=== PATIENT | female | born 1985 | race Caucasian/White ===

== ENCOUNTER 2016-09-10 10:23 | Inpatient (IN) | payer OTHER ==
--- NOTE | 2016-09-10 11:16 | OBHP ---
Datetime: 09/10/2016 11:09 IP Adm Impression: Term, intrauterine ; Ruptured Membranes IP Admit Plan: Admit to unit Admit Comment, IP Provider: chief complaint-leaking of fluid HPI 31 y/o at 37 wga with c/o leaking of fluid since7.30 am.States that she ahd mild spotting as well.Started feeling some pain also.Denies nausea, vomiting, headache, chest pain, shortness of b reath, numbness or tingling in hands and feet course uncomplicated PMH denies PSH denies OBGYN HX Social hx denies tobacco,alcohol or illicit drug use Exam see exam section A/P 31 y/o at 37wga with PROM. -Admit -see orders discussed with dr tony Fenton Type - PN: Adequate Extremities - PN: Normal Abdomen - PN: Normal Back - PN: Normal Lungs - PN: Normal Heart - PN: Normal Neurologic - PN: Normal General - PN: Normal Weight - Estimated: 3200 Presentation-Admit: Vertex Amniotic Fluid Color, Provider: Clear Membranes, Provider: Ruptured Contraction Comments Provider: irregular Gestation - Est Wks by US: 37.0 Pool Provider: Positive Nitrazine Provider: Positive Ferning Provider: Positive IP Hx Assessment: The History has been Reviewed and is Current EGA AdmitDate IP: 37.0 Vital Signs Provider: Reviewed IP Chief Complaint: Uterine contractions; Suspected ruptured membranes FHR Category Provider Fetus A: Category I Dilatation, Provider: 2-3 Effacement, Provider: 70 Station, Provider: -2 Genitourinary Exam: Normal DTRs - PN: Normal
--- NOTE | 2016-09-10 11:20 | OBADHP ---
Datetime: 09/10/2016 11:09 Admit Comment, IP Provider: chief complaint-leaking of fluid HPI 31 y/o at 37 wga with c/o leaking of fluid since7.30 am.States that she ahd mild spotting as well.Started feeling some pain also.Denies nausea, vomiting, headache, chest pain, shortness of b reath, numbness or tingling in hands and feet course uncomplicated PMH denies PSH denies OBGYN HX Social hx denies tobacco,alcohol or illicit drug use Exam see exam section A/P 31 y/o at 37wga with PROM. -Admit -pitocin cont satish and efm pain management anticipate Pelvic Type - PN: Adequate Extremities - PN: Normal Abdomen - PN: Normal Back - PN: Normal Lungs - PN: Normal Heart - PN: Normal Neurologic - PN: Normal General - PN: Normal Weight - Estimated: 3200 Presentation-Admit: Vertex Amniotic Fluid Color, Provider: Clear Membranes, Provider: Ruptured Contraction Comments Provider: irregular Comments, ACOG Physical Exam: gravid,non tender ext no edema,no calf ten sse +pooling,+nitrazine Gestation - Est Wks by US: 37.0 Pool Provider: Positive Nitrazine Provider: Positive Ferning Provider: Positive IP Hx Assessment: The History has been Reviewed and is Current Vital Signs Provider: Reviewed IP Chief Complaint: Uterine contractions; Suspected ruptured membranes FHR Category Provider Fetus A: Category I Dilatation, Provider: 2-3 Effacement, Provider: 70 Station, Provider: -2 Genitourinary Exam: Normal DTRs - PN: Normal EGA AdmitDate IP: 37.0 IP Adm Impression: Term, intrauterine ; Ruptured Membranes IP Admit Plan: Admit to unit
[2016-09-10] MEDS ORDERED: Oxytocin 30 UNIT 30 UNITS/500 ML BAG IV ONE (12:02)
[2016-09-10 12:38] LABS: RBC URINE 361 /hpf (0-3); URINE BILIRUBIN NEGATIVE (NEGATIVE); URINE BLOOD 3+ (NEGATIVE); URINE COLOR Yellow (YELLOW); URINE GLUCOSE (UA) NORMAL (Normal); URINE KETONE NEGATIVE (NEGATIVE); URINE LEUKOCYTE ESTERASE NEG Leu/uL (Negative); URINE PROTEIN NEGATIVE (NEGATIVE); URINE UROBILINOGEN NORMAL mg/dL (0.2-1.0); WBC URINE 1 /hpf (0-5)
[2016-09-10] MEDS ORDERED: Bupivacaine 0.125%/FentaNYL 200 ML EPI ONE (13:51)
[2016-09-10 14:56] LABS: HEMATOCRIT 39.5 % (34.0-47.0); MEAN CORPUSCULAR HEMOGLOBIN 26.5 pg (27.0-31.0); WHITE BLOOD COUNT 11.2 K/uL (4.8-10.8)
[2016-09-10 14:57] LABS: BASO % 0.2 % (0.0-2.0); EOS % 0.4 % (0.0-4.0); LYMPH # 1.9 K/uL (1.0-4.3); LYMPH % 17.3 % (20.0-40.0); MEAN CORPUSCULAR HGB CONC 31.7 g/dL (33.0-37.0); MEAN PLATELET VOLUME 9.3 fL (7.2-11.7); MONO % 6.2 % (0.0-10.0); RED CELL DISTRIBUTION WIDTH 15.1 % (11.5-14.5)
[2016-09-10 14:58] LABS: MEAN CELL VOLUME 83.6 fL (81.0-99.0); MONO # 0.7 K/uL (0.0-0.8)
[2016-09-10 15:08] LABS: CHLORIDE 103 mmol/L (98-107)
[2016-09-10 15:09] LABS: POTASSIUM 4.1 mmol/L (3.6-5.2); SODIUM 135 mmol/L (132-148)
[2016-09-10 15:11] LABS: GFR AFRICAN-AMERICAN > 60
[2016-09-10 15:12] LABS: BLOOD UREA NITROGEN 11 mg/dL (7-17); CALCIUM 9.5 mg/dl (8.6-10.4); CARBON DIOXIDE 20 mmol/L (22-30); GLUCOSE,RANDOM 82 mg/dL (65-105)
[2016-09-10] MEDS ORDERED: Oxytocin 20 units in LR 2,000 ML IV ONE (15:47)
[2016-09-10] MEDS ORDERED: Sodium Citrate/Citric Acid 15 ml Sol ONE (15:48)
[2016-09-10] MEDS ORDERED: cefOXitin IV 2 gm in Dextrose 2 GM/50 ML BAG IVPB ONE (15:48)
[2016-09-10 16:39] VITALS: BMI 35.4
[2016-09-10] MEDS ORDERED: DiphenhydrAMINE 50 mg/ml Inj IVP PRN (16:41)
[2016-09-10] MEDS ORDERED: HYDROmorphone 0.5 mg/0.5 ml ISec IVP PRN (16:41)
[2016-09-10] MEDS ORDERED: Dexamethasone 4 mg/1 ml IVP PRN (16:41)
[2016-09-10] MEDS ORDERED: Lactated Ringer's 1,000 ML IV SCH (16:45)
--- NOTE | 2016-09-10 16:53 | OBPN ---
Datetime: 09/10/2016 16:50 IP Progress Impression: Non-reassuring heart rate IP Informed Consent Obtain: Section Delivery; Risks, Benefits and Alternatives Discussed IP Procedures: Sterile Vag Exam FHR - Baseline A Provider: 130 IP Progress Note Comment: pt was examined at bed side fhr 130 mod mercy with ctg tracing with rec decleration. ve 380/-2, unchanged with blood clots. primary c/s was called with ctg11 tracing r/o placental abruption r/a/b disc pt und agrees oraware anthesia aware FHR Category Provider Fetus A: Category II NICHD Variability Prov Fetus A: Moderate 6-25bpm NICHD Decel Fetus A IP Provider: Late Datetime: 09/10/2016 11:09 Pool Provider: Positive Nitrazine Provider: Positive Ferning Provider: Positive Membranes, Provider: Ruptured Amniotic Fluid Color, Provider: Clear Contraction Comments Provider: irregular Gestation - Est Wks by US: 37.0 Weight - Estimated: 3200 Presentation-Admit: Vertex Vital Signs Provider: Reviewed Dilatation, Provider: 2-3 Effacement, Provider: 70 Station, Provider: -2
--- NOTE | 2016-09-10 16:55 | OBDS ---
MATERNAL INFORMATION Delivery Anesthesia: Epidural Provider Comments: baby chiquita in dop position. placente 50 abrpution. cord arrounfd neeck x 2 no com cyttec 1000 mcg LABOR SUMMARY EDC: 10/01/2016 00:00 LABOR INFORMATION Group B Beta Strep: Negative STAGES OF LABOR Stage 3 hrs: 0 Stage 3 min: 1 BABY A INFORMATION Infant Delivery Date/Time: 09/10/2016 16:20 Method of Delivery: Born in Route : No : N/A Forceps: N/A Vacuum Extraction: N/A Shoulder Dystocia : No SHOULDER DYSTOCIA BABY A Infant Delivery Date/Time: 09/10/2016 16:20 PRESENTATION/POSITION BABY A Presentation: Cephalic Cephalic Presentation: Vertex Vertex Position: Left Occipital Posterior Breech Presentation: N/A PLACENTA INFORMATION BABY A Placenta Delivery Time : 09/10/2016 16:21 Placenta Method of Delivery: Manual Removal Placenta Status: Delivered SCORES BABY A Heart Rate 1 min: >100 bpm Resp Effort 1 min: Good Cry Reflex Irritability 1 min: Cough or Sneeze or Pulls Away Muscle Tone 1 min: Active Motion Color 1 min: Body [place], Extremities Blue SCORE 1 MIN: 9 Heart Rate 5 min: >100 bpm Resp Effort 5 min: Good Cry Reflex Irritability 5 min: Cough or Sneeze or Pulls Away Muscle Tone 5 min: Active Motion Color 5 min: Body [place], Extremities Blue SCORE 5 MIN: 9 INFORMATION BABY A Gestational Age at Delivery: 37.0 Gestational Status: Term Infant Outcome : Liveborn Infant Condition : Stable Infant Sex: Male IDENTIFICATION/MEDS BABY A ID Band Number: [id number] ID Band Location: Left Leg; Left Arm Sensor Applied: Yes Sensor Number: [id number] Vitamin K Given : Aquamephyton 1 mg IM Erythromycin Given: Given Left Eye Only WEIGHT/LENGTH BABY A Birthweight (gms): 2640 Weight (lb): 5 Weight (oz): 13 Length Inches: 18.25 Infant Length cms: 46.4 CORD INFORMATION BABY A No. Cord Vessels: 3 Nuchal Cord : Around Neck x2, Loose Cord Blood Taken: Yes Infant Suction: Mouth; Nose ASSESSMENT BABY A Complications: None Physical Findings at Delivery: Within Normal Limits Respirations: Appears Normal Chip Unloader/ALS Called : Yes Infant Care By: dr morales Transferred To: Nursery
[2016-09-10] MEDS ORDERED: Lidocaine 2% MPF (5 ml) Inj ONE (17:39)
[2016-09-10] MEDS: Simethicone 80 mg Chewtab PO SCH (22:59)
[2016-09-11 08:07] LABS: HEMATOCRIT 34.1 % (34.0-47.0); MEAN CELL VOLUME 84.1 fL (81.0-99.0); MEAN CORPUSCULAR HEMOGLOBIN 26.8 pg (27.0-31.0); MEAN CORPUSCULAR HGB CONC 31.9 g/dL (33.0-37.0); MEAN PLATELET VOLUME 9.2 fL (7.2-11.7); RED CELL DISTRIBUTION WIDTH 15.2 % (11.5-14.5); WHITE BLOOD COUNT 13.5 K/uL (4.8-10.8)
--- NOTE | 2016-09-11 08:52 | CP.PCM.PN ---
Subjective - Date & Time of Evaluation Date of Evaluation: 09/11/16 Time of Evaluation: 08:42 - Subjective Subjective: SHORT ORDER FRY COOK Progress Note Dr. Vasquez Patient seen and examined at the bedside. No acute distress. No acute events overnight. Nursing staff reports no issues. Patient is post- day 1 s/p cesarian section for placental abruption. The patient tolerated the procedure well. The patient's pain is well controlled. The patient is tolerating her liquid diet. Patient denies voiding and BM. The patient denies N/V this morning. Objective - Vital Signs/Intake and Output Vital Signs (last 24 hours): Temp Pulse Resp BP Pulse Ox 98.5 F 90 18 114/77 100 09/11/16 08:00 09/11/16 08:00 09/11/16 08:00 09/11/16 08:00 09/11/16 08:00 - Medications Medications: Current Medications Acetaminophen (Tylenol 650 Mg Supp) 650 mg KS Q4 PRN PRN Reason: Fever >100.4 F Bisacodyl (Dulcolax) 10 mg PO ONCE ONE Stop: 09/11/16 16:55 Docusate Sodium (Colace) 100 mg PO BID TOY Ferrous Sulfate (Feosol) 325 mg PO DAILY TOY Lactated Ringer's (Lactated Ringer's) 1,000 mls @ 120 mls/hr IV .Q8H20M TOY Oxytocin (Pitocin 20 Units In Lr) 1,000 mls @ 125 mls/hr IV .Q8H TOY PRN Reason: Protocol Ibuprofen (Motrin Tab) 600 mg PO Q4 PRN PRN Reason: Pain, Mild (1-3) Ketorolac Tromethamine (Toradol) 30 mg IM Q6 PRN PRN Reason: Pain, severe (8-10) Last Admin: 09/11/16 03:58 Dose: 30 mg Oxycodone/Acetaminophen (Percocet 5/325 Mg Tab) 1 tab PO Q4H PRN PRN Reason: Pain, moderate (4-7) Stop: 09/13/16 16:54 Oxycodone/Acetaminophen (Percocet 5/325 Mg Tab) 2 tab PO Q4H PRN PRN Reason: Pain, severe (8-10) Stop: 09/13/16 16:54 Simethicone (Mylicon Chew Tab) 80 mg PO QID TOY Last Admin: 09/10/16 22:59 Dose: Not Given - Labs Labs: 09/11/16 08:01 09/10/16 12:30 - Constitutional Appears: Well, No Acute Distress - Head Exam Head Exam: ATRAUMATIC, NORMAL INSPECTION, NORMOCEPHALIC - Eye Exam Eye Exam: EOMI, Normal appearance - ENT Exam ENT Exam: Mucous Membranes Moist - Neck Exam Neck Exam: Full ROM, Normal Inspection. absent: Lymphadenopathy - Respiratory Exam Respiratory Exam: Clear to Ausculation Bilateral, NORMAL BREATHING PATTERN. absent: Rales, Rhonchi, Wheezes, Stridor - Cardiovascular Exam Cardiovascular Exam: REGULAR RHYTHM, +S1, +S2. absent: Diastolic murmur, Murmur - GI/Abdominal Exam GI & Abdominal Exam: Soft, Normal Bowel Sounds. absent: Distended, Firm, Guarding, Rigid, Tenderness Additional comments: Dressing C/D/I Minimal tenderness about incision no erythema no exudate no edema - Exam Additional comments: Fundal height at umbilicus - Extremities Exam Extremities Exam: Full ROM, Normal Capillary Refill, Normal Inspection. absent : Joint Swelling, Pedal Edema - Back Exam Back Exam: NORMAL INSPECTION. absent: CVA tenderness (L), CVA tenderness (R) - Neurological Exam Neurological Exam: Alert, Awake, CN II-XII Intact, Oriented x3 - Skin Skin Exam: Dry, Intact, Normal Color, Warm Assessment and Plan (1) Delivered by section Assessment & Plan: Post- day #1 continue routine post-operative and post- care advance diet as tolerated - currently tolerating liquids, advanced to full liquid today Incentive spirometer ordered CBC stable, will trend 1 more day ambulation encouraged pain control: percocet 5/325mg 2tab (8-10), percocet 5/325mg 1 tab (4-7), motrin 800mg (1-3) PRN Pain Continue wound care Case discussed with Dr. Christina Duque PGY1 Status: Acute (2) Placental abruption Status: Resolved
[2016-09-11] MEDS: Simethicone 80 mg Chewtab PO SCH ×4 (09:30→21:21)
[2016-09-11] MEDS: Oxycodone/Acetaminophen 5/325 mg Tab PO PRN ×3 (09:31→21:19)
--- NOTE | 2016-09-11 10:39 | PCM.SURG1 ---
Surgeon's Initial Post Op Note - Surgeon's Notes Surgeon: dr jimenez Engraver Rubber: dr griggs Type of Anesthesia: Moderate Sedation{RN}, Other (epidural) Anesthesia Administered By: dr marquez Pre-Operative Diagnosis: 31yr at 37weeks ctg 111 tracing r/o placenta abruption Operative Findings: see the op report Post-Operative Diagnosis: same with 50 placental abruption Operation Performed: primary section Specimen/Specimens Removed: feyis. cord blood. cord gas. placente Estimated Blood Loss: EBL {In ML}: 900 Blood Products Given: N/A Drains Used: No Drains Post-Op Condition: Good Date of Surgery/Procedure: 09/10/16 Time of Surgery/Procedure: 17:00
--- NOTE | 2016-09-11 11:32 | OP ---
PROCEDURE DATE: 09/11/2016 PREOPERATIVE DIAGNOSIS: A 31-year-old, 1, para 0, at 37 weeks with premature rupture of membranes, category II tracing, rule out placenta _ abruption___. POSTOPERATIVE DIAGNOSES: A 31-year-old, 1, para 0, at 37 weeks with premature rupture of membranes, category II tracing, rule out placenta __ abruption__. SURGEON: Harvinder Vasquez MD GAS OR WATER METER INSTALLER SURGEON: Dr. Chan, who was present throughout the surgery ____ exposure, retraction and pushing at the time of the delivery. ANESTHESIA: Epidural. ANESTHESIOLOGIST: Dr. Kraft. COMPLICATIONS: None. ESTIMATED BLOOD LOSS: 900 mL. ____: Placenta __abruption __ 50%. PROCEDURE: After informed ____ was obtained, the patient was brought to the operating room ____ table where epidural anesthesia was ____ found to be ____, she was prepped and draped in normal sterile fashion. 2 cm above the pubic bone , a skin incision was made with a knife, the subcutaneous with a Bovie. The fascia ____ was excised and extended on ____. The fascia was excised. We went into the abdominal cavity. The rectus muscle was , peritoneum excised. We entered the abdominal cavity. The bladder blade was placed, the bladder flap was created, bladder blade was replaced. Lower uterine segment incision was made with a knife, the subcutaneous with a Bovie. The lower uterine segment incision was made. The baby delivered in ____ direct occiput position. Two cords around the neck which was reduced. Cord gas was taken. Baby was ____ to the awaiting tuber machine operator helper. Placenta delivered manually and sent to pathology. Placenta observed with 50% abruption; was sent to pathology. Uterus exteriorized, cleared of all the clots and debris. Uterine incision was closed using 1-0 Vicryl ____locking fashion, second layer closure with the same stitch. Cul-de-sac was cleared of all debris. Uterus was returned back to abdominal cavity. The incision looked back and it was clear and hemostatic. Gutters were cleared of all the clots and debris. After that, the peritoneum was closed with 2-0 Vicryl in nonlocking fashion. Muscle was closed ____ in nonlocking fashion. Fascia was closed using 1-0 Vicryl nonlocking fashion, subcutaneous with 0 Vicryl ____, and skin was closed with 3- 0 Monocryl. The patient tolerated the procedure well. Laps, sponge and instruments correct x 2. Harvinder Vasquez MD cc: [id number] TT: 09/11/2016 11:29:22 tien CHILD
[2016-09-11] MEDS ORDERED: Bisacodyl 5mg EC Tab PO ONE (16:54)
[2016-09-12] MEDS: Oxycodone/Acetaminophen 5/325 mg Tab PO PRN ×5 (01:27→20:03)
--- NOTE | 2016-09-12 09:05 | OBPPN ---
Datetime: 09/12/2016 09:02 PP Pain Prov: Within normal limits PP Nausea Prov: Denies PP Flatus Prov: Yes PP Abdomen/Uterus Prov: Normal PP Lochia Prov: Normal PP Extremities Prov: Not Done PP C/S Incision Prov: Normal PP Comments Phys Exam Prov: fudus below umblicus ext no edema,no calf ten inciion clean and dry PP Impression Prov: Normal progression PP Plan Prov: Continue present management PP Progress Note Prov: pt was seen at bed side, pain under control, no n/v, tolerating deit, voiding ,min lohia, flatus+ pod#2 s/p c/s encourage ambulation cont pain management cont post op care Vital Signs Provider PP: Reviewed; Within Normal Limits
[2016-09-12] MEDS: Simethicone 80 mg Chewtab PO SCH ×4 (09:08→21:53)
[2016-09-12 16:03] VITALS: RESP 20
[2016-09-13] MEDS: Oxycodone/Acetaminophen 5/325 mg Tab PO PRN ×2 (01:15→05:17)
--- NOTE | 2016-09-13 06:49 | CP.PCM.DIS ---
Provider - Provider Date of Admission: 09/10/16 11:15 Attending physician: Harvinder Vasquez MD Time Spent in preparation of Discharge (in minutes): 20 Diagnosis - Discharge Diagnosis (1) Status post primary low transverse section Status: Acute (2) Non-reassuring cardiotocographic tracing Status: Acute Hospital Course - Lab Results Lab Results: Most Recent Lab Values WBC 13.5 K/uL (4.8-10.8) H 09/11/16 08:01 RBC 4.05 Mil/uL (3.80-5.20) 09/11/16 08:01 Hgb 10.9 g/dL (11.0-16.0) L 09/11/16 08:01 Hct 34.1 % (34.0-47.0) 09/11/16 08:01 MCV 84.1 fL (81.0-99.0) 09/11/16 08:01 MCH 26.8 pg (27.0-31.0) L 09/11/16 08:01 MCHC 31.9 g/dL (33.0-37.0) L 09/11/16 08:01 RDW 15.2 % (11.5-14.5) H 09/11/16 08:01 Plt Count 211 K/uL (130-400) 09/11/16 08:01 MPV 9.2 fL (7.2-11.7) 09/11/16 08:01 Neut % (Auto) 75.9 % (50.0-75.0) H 09/10/16 12:30 Lymph % (Auto) 17.3 % (20.0-40.0) L 09/10/16 12:30 [place]yer % (Auto) 6.2 % (0.0-10.0) 09/10/16 12:30 Eos % (Auto) 0.4 % (0.0-4.0) 09/10/16 12:30 Baso % (Auto) 0.2 % (0.0-2.0) 09/10/16 12:30 Neut # 8.5 K/uL (1.8-7.0) H 09/10/16 12:30 Lymph # 1.9 K/uL (1.0-4.3) 09/10/16 12:30 Sawyer # 0.7 K/uL (0.0-0.8) 09/10/16 12:30 Eos # 0.0 K/uL (0.0-0.7) 09/10/16 12:30 Baso # 0.0 K/uL (0.0-0.2) 09/10/16 12:30 Sodium 135 mmol/L (132-148) 09/10/16 12:30 Potassium 4.1 mmol/L (3.6-5.2) 09/10/16 12:30 Chloride 103 mmol/L (98-107) 09/10/16 12:30 Carbon Dioxide 20 mmol/L (22-30) L 09/10/16 12:30 Anion Gap 16 (10-20) 09/10/16 12:30 BUN 11 mg/dL (7-17) 09/10/16 12:30 Creatinine 0.6 MG/DL (0.7-1.2) L 09/10/16 12:30 Est GFR ( Amer) > 60 09/10/16 12:30 Est GFR (Non-Af Amer) > 60 09/10/16 12:30 Random Glucose 82 mg/dL (65-105) 09/10/16 12:30 Calcium 9.5 mg/dl (8.6-10.4) 09/10/16 12:30 Urine Color Yellow (YELLOW) 09/10/16 12:30 Urine Clarity Clear (Clear) 09/10/16 12:30 Urine pH 6.0 (5.0-8.0) 09/10/16 12:30 Ur Specific [place] 1.008 (1.003-1.030) 09/10/16 12:30 Urine Protein Negative mg/dL (NEGATIVE) 09/10/16 12:30 Urine Glucose (UA) Normal mg/dL (Normal) 09/10/16 12:30 Urine Ketones Negative mg/dL (NEGATIVE) 09/10/16 12:30 Urine Blood 3+ (NEGATIVE) H 09/10/16 12:30 Urine Nitrate Negative (NEGATIVE) 09/10/16 12:30 Urine Bilirubin Negative (NEGATIVE) 09/10/16 12:30 Urine Urobilinogen Normal mg/dL (0.2-1.0) 09/10/16 12:30 Ur Leukocyte Esterase Neg Gabriella/uL (Negative) 09/10/16 12:30 Urine WBC (Auto) 1 /hpf (0-5) 09/10/16 12:30 Urine RBC (Auto) 361 /hpf (0-3) H 09/10/16 12:30 Ur Squamous Epith Cells 1 /hpf (0-5) 09/10/16 12:30 RPR Nonreactive (NONREACTIVE) 09/10/16 12:30 Hepatitis A IgM Ab Negative (NEGATIVE) 09/10/16 12:30 Hep Bs Antigen Negative (NEGATIVE) 09/10/16 12:30 Hep B Core IgM Ab Negative (NEGATIVE) 09/10/16 12:30 Hepatitis C Antibody Negative (NEGATIVE) 09/10/16 12:30 HIV 1&2 Antibody Screen Negative (NEGATIVE) 09/10/16 12:30 Blood Type O NEGATIVE 09/10/16 12:30 Antibody Screen Negative 09/10/16 12:30 Discharge Exam - Head Exam Head Exam: ATRAUMATIC, NORMAL INSPECTION, NORMOCEPHALIC Discharge Plan - Discharge Medications Prescriptions: Ibuprofen [Motrin Tab] 800 mg PO Q8 PRN #30 tab PRN Reason: Pain, Moderate (4-7) oxyCODONE/Acetaminophen [Percocet 5/325 mg Tab] 1 ea PO Q6 #20 tab - Follow Up Plan Condition: GOOD Disposition: HOME/ ROUTINE Instructions: Section (DC), Depression (GEN), Caring for Your Baby (DC), Your Baby (DC), and Nipple Soreness (DC), How to Tell if Your Baby is Getting Enough Breast Milk (DC), Surgical Site Infections (DC), Postoperative Bleeding (GEN), Care For Your Absorbable Stitches (DC)
[2016-09-13 07:51] VITALS: BP 130/85; PULSE 78; TEMP 98.2; O2SAT 98
[2016-09-13] MEDS: Simethicone 80 mg Chewtab PO SCH (10:40)
[2016-09-13] MEDS ORDERED: Measles, Mumps, and Rubella 0.5 ML VIAL SC ONE (11:45)
== END 2016-09-13 13:10 | disposition home or self-care (01) | DRG 765 ==
LOC: C.EROB 10:23 → C.4D 11:15 → C.4M 19:00
PROVIDERS: ADMIT Obstetrics & Gynecology; ATTEND Obstetrics & Gynecology
PROC: 10D00Z1 Extraction of Products of Conception, Low, Open Approach (ICD-10-PCS; principal; 2016-09-10)
DX: O42.02 Full-term premature rupture of membranes, onset of labor within 24 hours of rupture (principal); O45.93 Premature separation of placenta, unspecified, third trimester; O76 Abnormality in fetal heart rate and rhythm complicating labor and delivery; O69.81X0 Labor and delivery complicated by cord around neck, without compression, not applicable or unspecified; Z3A.37 37 weeks gestation of pregnancy; Z37.0 Single live birth